=== PATIENT | male | born 1965 | race Asian ===

== ENCOUNTER → 2024-12-27 | Day surgery (SDC) | payer BC ==
[~2024-12-27] MED LIST: ASPIRIN81 MG PO; ATORVASTATIN CA10 MG PO; HYOSCYAMINE SULFATE 0.5 MG/ML INJ ONE; LIDOCAINE HCL 2% LOCAL INJ 5 ML SDV VIAL INJ ONE; LISINOPRIL2.5 MG PO; MIDAZOLAM HCL 2 MG/2 ML VIAL ONE; PROPOFOL IV EMULSION 10 MG/ML 20 ML VIAL ONE
[2024-12-27 12:17] VITALS: TEMP 98.7
[2024-12-27] MEDS: LACTATED RINGER'S 1,000 ML ONE (12:50)
[2024-12-27 13:05] VITALS: BP 131/91; PULSE 78; RESP 16; O2SAT 100
== END | disposition home or self-care (01) ==
LOC: OR 10:03
PROVIDERS: ATTEND Internal Medicine Gastroenterology
DX: Z12.11 Encounter for screening for malignant neoplasm of colon (principal); D12.3 Benign neoplasm of transverse colon; K64.8 Other hemorrhoids; R74.8 Abnormal levels of other serum enzymes; I10 Essential (primary) hypertension; E78.5 Hyperlipidemia, unspecified; F17.220 Nicotine dependence, chewing tobacco, uncomplicated; Z01.810 Encounter for preprocedural cardiovascular examination; Z79.82 Long term (current) use of aspirin; Z79.899 Other long term (current) drug therapy
CPT/HCPCS: 45385; 93005; J1980; J2003; J2250; J2704; J7121; 44391